=== PATIENT | male | born 1990 | race Two or more races ===

== ENCOUNTER 2021-04-29 14:13 | Emergency (ER) | payer MEDICAID ==
[~2021-04-29] VITALS: Ht 182.9 cm; Wt 86.4 kg
[~2021-04-29 14:13] MED LIST: LIDOCAINE VISC20 ML MT
[2021-04-29] MEDS ORDERED: PENICILLN VK500 MG PO (14:38)
[2021-04-29 15:07] VITALS: BP 129/76
== END 2021-04-29 15:07 | disposition home or self-care (01) ==
LOC: ED 14:13
DX: K04.7 Periapical abscess without sinus (principal); K02.9 Dental caries, unspecified; M84.68XA Pathological fracture in other disease, other site, initial encounter for fracture